=== PATIENT | female | born 1990 | race Caucasian/White ===

== ENCOUNTER → 2017-01-24 | Outpatient (CLI) | payer OTHER ==
[~2017-01-24] MED LIST: ACET-1256 PO; ONDA4TAB10 SL
--- NOTE | 2017-01-24 15:35 | DIAGNOSTIC IMAGING REPORT ---
SINUS CT CT DOSE: 619.67 mGy.cm HISTORY: Sinusitis ACUTE RECURRING SINUSITIS TECHNIQUE: Multiaxial CT images of the paranasal sinuses were performed and reformatted in the coronal plane without the use of contrast. COMPARISON: None. FINDINGS: The frontal sinuses, ethmoid air cells, sphenoid sinuses, and bilateral maxillary antra are clear. The mastoid air cells are clear. The bilateral ostiomeatal units are patent. The nasal septum is midline. The orbits are unremarkable. IMPRESSION: The paranasal sinuses and mastoid air cells are clear. Electronically signed by: Shar Flanagan M.D. 01/24/2017 3:34 PM Dictated Date/Time: 01/24/2017 3:25 PM
== END | disposition home or self-care (01) ==
LOC: C.CTS 14:47
PROVIDERS: ATTEND Internal Medicine
DX: J01.91 Acute recurrent sinusitis, unspecified (principal)